=== PATIENT | male | born 1985 | race Caucasian/White ===

== ENCOUNTER 2022-12-20 16:41 | Outpatient (CLI) | payer OTHER, SELFPAY ==
--- NOTE | ~2022-12-20 | MR_ITS ---
MRI of the left knee Clinical history: Pain Technique: Coronal proton density and proton density-weighted images, sagittal proton-density and T2 fat-sat images, and axial proton-density fat-saturated images were acquired. Findings: Anterior and posterior cruciate ligaments are intact. Medial collateral ligament and the la teral collateral ligament complex are intact. Popliteus tendon is intact. Medial and lateral menisci are intact, without evidence of tear. Articular cartilage is well preserved in the medial and lateral compartments, and along the femoral t rochlea. There are focal areas of moderate to high-grade chondromalacia along the patellar apex and m edial patellar facet. Minimal spurring noted at the intercondylar notch. There is marked thickening and hyperintense signal of the patellar tendon, with focal high-grade part ial thickness tearing at the posterior aspect of the proximal patellar tendon. Small fluid distended prepatellar bursae are present. Impression: High-grade partial-thickness tear of the proximal patellar tendon. Prepatellar bursitis. Focal areas of chondromalacia patella, as detailed above. Reviewed, dictated and finalized at location M. Impression: High-grade partial-thickness tear of the proximal patellar tendon. Prepatellar bursitis. Focal areas of chondromalacia patella, as detailed above.
== END 2022-12-20 16:42 ==
LOC: MICIMG 16:44
PROVIDERS: PCP Orthopaedic Surgery; Visit Provider Orthopaedic Surgery
DX: M25.562 Pain in left knee (principal); S86.812A Strain of other muscle(s) and tendon(s) at lower leg level, left leg, initial encounter; M71.562 Other bursitis, not elsewhere classified, left knee; M22.42 Chondromalacia patellae, left knee
CPT/HCPCS: 73721